=== PATIENT | male | born 1970 | race Caucasian/White ===

== ENCOUNTER 2020-07-11 21:48 | Emergency (ER) | payer MEDICAID ==
[~2020-07-11] VITALS: Ht 177.8 cm; Wt 103.0 kg
[2020-07-11 21:54] VITALS: Ht 177.8 cm; Wt 103.0 kg
[2020-07-11 22:40] VITALS: BP 118/63
== END 2020-07-11 22:40 | disposition home or self-care (01) ==
LOC: ED 21:48
DX: M77.8 Other enthesopathies, not elsewhere classified (principal); Z88.0 Allergy status to penicillin
CPT/HCPCS: Q0092